=== PATIENT | female | born 1965 | race African-American/Black ===

== ENCOUNTER 2017-04-19 15:09 | Emergency (ER) | payer BC, OTHER ==
[~2017-04-19] VITALS: Ht 170.2 cm; Wt 100.0 kg
[2017-04-19] MEDS ORDERED: METF500T4 PO (15:20)
[2017-04-19] MEDS ORDERED: ONDANSETRON 4MG ODT PO ONE (16:00)
[2017-04-19 18:03] VITALS: BP 169/75
== END 2017-04-19 18:04 | disposition home or self-care (01) ==
LOC: ER 15:36
DX: T40.2X5A Adverse effect of other opioids, initial encounter (principal); Z88.6 Allergy status to analgesic agent; Z88.8 Allergy status to other drugs, medicaments and biological substances
CPT/HCPCS: 93005; 99283; Q0162; Z7610

== ENCOUNTER 2017-04-21 01:27 | Emergency (ER) | payer BC ==
[~2017-04-21] VITALS: Ht 162.6 cm; Wt 57.0 kg
[~2017-04-21 01:27] MED LIST: METF500T4 PO
[2017-04-21] MEDS ORDERED: ASPIRIN 81MG TABLET PO ONE (03:00)
[2017-04-21] MEDS ORDERED: NITROGLYCERIN OINT 1GM/INCH UDPKT TD ONE (03:00)
[2017-04-21 03:23] LABS: BASOPHILS % 0.8 % (0.0-2.0); EOSINOPHILS % 4.6 % (0.0-5.0); HEMATOCRIT. 35.8 % (36.0-48.0); HEMOGLOBIN. 12.1 g/dL (12.0-16.0); LYMPHOCYTES % 22.8 % (20.0-50.0); MEAN CORPUSCULAR HEMOGLOBIN 28.9 pg (28.0-32.0); MEAN CORPUSCULAR VOLUME 85.4 fL (81.0-99.0); MEAN PLATELET VOLUME 8.6 fl (7.4-10.4); MONOCYTES % 10.6 % (2.0-8.0); NEUTROPHILS % 61.2 % (40.0-76.0); PLATELET 288 x1000/uL (130-400); RED CELL DISTRIBUTION WIDTH 13.6 % (11.6-14.6)
[2017-04-21 03:34] LABS: D-DIMER < 0.19 mg/L FEU (<0.50); PROTHROMBIN TIME 10.1 sec
[2017-04-21 03:40] LABS: *AMPHETAMINES SCREEN URINE NEGATIVE (NEGATIVE); *BARBITURATES SCREEN URINE NEGATIVE (NEGATIVE); *BENZODIAZEPINES SCREEN URINE NEGATIVE (NEGATIVE); *COCAINE SCREEN URINE NEGATIVE (NEGATIVE); CANNABINOID URINE SCREEN PRESUMTIVE POSITIVE (NEGATIVE); METHADONE URINE SCREEN NEGATIVE (NEGATIVE); OPIATES URINE SCREEN NEGATIVE (NEGATIVE); PHENCYCLIDINE URINE SCREEN NEGATIVE (NEGATIVE)
[2017-04-21 03:40] LABS: CARBON DIOXIDE 28 mEq/L (21-32); CHLORIDE 102 mEq/L (98-107); ETHANOL BLOOD < 10 mg/dL; TROPONIN I < 0.02 ng/mL (0.00-0.04)
[2017-04-21 06:32] VITALS: BP 145/80
== END 2017-04-21 06:34 | disposition home or self-care (01) ==
LOC: ER 01:27
DX: I10 Essential (primary) hypertension (principal); R06.00 Dyspnea, unspecified; R00.1 Bradycardia, unspecified; M10.9 Gout, unspecified; E11.9 Type 2 diabetes mellitus without complications; F12.10 Cannabis abuse, uncomplicated; Z88.6 Allergy status to analgesic agent; Z87.828 Personal history of other (healed) physical injury and trauma
CPT/HCPCS: 36415; 71010; 80053; 80305; 83605; 83690; 83880; 84484; 85025; 85379; 85610; 93005; 99285; G0482; Z7610

== ENCOUNTER 2017-10-24 21:28 | Emergency (ER) | payer BC ==
[~2017-10-24] VITALS: Ht 170.2 cm; Wt 100.0 kg
[2017-10-25] MEDS ORDERED: CLONIDINE 0.1MG TABLET PO ONE (00:45)
[2017-10-25 02:30] VITALS: BP 143/63
[2017-10-25] MEDS ORDERED: TETANUS, DIPHTHERIA, PERTUSSIS VAC/PF 0.5ML (>7YR OLD) IM ONE (02:39)
[2017-10-25] MEDS ORDERED: BACITRACIN ZINC OINT UDPKT TOP ONE (02:45)
== END 2017-10-25 02:45 | disposition home or self-care (01) ==
LOC: ER 21:28
DX: S93.401A Sprain of unspecified ligament of right ankle, initial encounter (principal); S80.212A Abrasion, left knee, initial encounter; I10 Essential (primary) hypertension; E11.9 Type 2 diabetes mellitus without complications; F12.10 Cannabis abuse, uncomplicated; W01.0XXA Fall on same level from slipping, tripping and stumbling without subsequent striking against object, initial encounter; Y93.89 Activity, other specified; Y99.8 Other external cause status; Y92.89 Other specified places as the place of occurrence of the external cause
CPT/HCPCS: 73562; 73610; 90471; 90715; 99284; Z7610

== ENCOUNTER 2018-01-28 18:56 | Emergency (ER) | payer SELFPAY ==
[~2018-01-28] VITALS: Ht 170.2 cm; Wt 96.0 kg
[2018-01-28 19:53] VITALS: BP 179/67
[2018-01-28 22:36] LABS: CLARITY URINE CLEAR (CLEAR); COLOR URINE YELLOW (YELLOW); KETONES URINE NEGATIVE (NEGATIVE); LEUKOCYTE ESTERASE URINE 1+ (NEGATIVE); NITRITE URINE NEGATIVE (NEGATIVE); OCCULT BLOOD URINE NEGATIVE (NEGATIVE); PROTEIN URINE NEGATIVE (NEGATIVE); UROBILINOGEN URINE 0.2 E.U./dL (0.2-1.0)
[2018-01-28] MEDS ORDERED: BACITRACIN ZINC OINT UDPKT TOP ONE (22:45)
[2018-01-28] MEDS ORDERED: LIDOCAINE HCL 1% 20ML VIAL (Pyxis) INJ INFIL ONE (22:45)
[2018-01-28] MEDS ORDERED: LIDOCAINE HCL/PF 1% 10 MG/ML 5ML VIAL IJ NR (23:15)
[2018-01-28 23:26] LABS: BASOPHILS % 0.6 % (0.0-2.0); EOSINOPHILS % 4.7 % (0.0-5.0); HEMATOCRIT. 35.4 % (36.0-48.0); HEMOGLOBIN. 11.7 g/dL (12.0-16.0); LYMPHOCYTES % 27.8 % (20.0-50.0); MEAN CORPUSCULAR HEMOGLOBIN 28.5 pg (28.0-32.0); MEAN CORPUSCULAR VOLUME 85.8 fL (81.0-99.0); MEAN PLATELET VOLUME 9.3 fl (7.4-10.4); MONOCYTES % 8.4 % (2.0-8.0); NEUTROPHILS % 58.5 % (40.0-76.0); PLATELET 258 x1000/uL (130-400); RED BLOOD CELL COUNT 4.13 mill/uL (4.2-5.4)
[2018-01-28 23:29] LABS: CHLORIDE 106 mEq/L (98-107)
[2018-01-28 23:32] LABS: PROTHROMBIN TIME 10.8 sec (9.4-11.6)
== END 2018-01-29 03:37 | disposition home or self-care (01) ==
LOC: ER 20:52
DX: R06.02 Shortness of breath (principal); L02.213 Cutaneous abscess of chest wall; I10 Essential (primary) hypertension; E11.9 Type 2 diabetes mellitus without complications; F12.10 Cannabis abuse, uncomplicated
CPT/HCPCS: 10060; 36415; 71045; 80053; 81003; 83880; 84484; 85025; 85610; 93005; 99285; J3490

== ENCOUNTER 2023-11-26 20:49 | Emergency (ER) | payer MEDICAID ==
[~2023-11-26] VITALS: Ht 177.8 cm; Wt 81.0 kg
[~2023-11-26 20:49] MED LIST changes: +METF-414 PO; -METF500T4 PO
[2023-11-26 20:55] VITALS: BP 169/78; PULSE 75; RESP 16; O2SAT 100
[2023-11-26 23:35] VITALS: TEMP 97.3
[2023-11-26] MEDS: ACETAMINOPHEN 325MG TABLET PO ONE (23:35)
== END 2023-11-27 00:42 | disposition home or self-care (01) ==
LOC: ER 20:49
DX: M25.512 Pain in left shoulder (principal); F12.10 Cannabis abuse, uncomplicated; E11.9 Type 2 diabetes mellitus without complications; M54.2 Cervicalgia; I10 Essential (primary) hypertension; Z88.5 Allergy status to narcotic agent; W01.0XXA Fall on same level from slipping, tripping and stumbling without subsequent striking against object, initial encounter; Y93.89 Activity, other specified; Y92.89 Other specified places as the place of occurrence of the external cause; Y99.8 Other external cause status
CPT/HCPCS: 73030; 99284

== ENCOUNTER 2023-12-12 19:06 | Emergency (ER) | payer MEDICAID, OTHER ==
[~2023-12-12] VITALS: Ht 167.6 cm; Wt 81.0 kg
[2023-12-12 19:19] VITALS: BP 171/80; PULSE 74; RESP 18; TEMP 98.5; O2SAT 100
[2023-12-12] MEDS: KETOROLAC 30MG/ML VIAL IM STA (20:04)
[2023-12-12] MEDS: METOCLOPRAMIDE HCL 10MG/2ML VIAL IM ONE (20:15)
[2023-12-12] MEDS: CYCLOBENZAPRINE 10MG TABLET PO NR (21:15)
[2023-12-12 21:34] LABS: CLARITY URINE CLEAR (CLEAR); COLOR URINE YELLOW (YELLOW); GLUCOSE URINE NEGATIVE (NEGATIVE); KETONES URINE NEGATIVE (NEGATIVE); LEUKOCYTE ESTERASE URINE TRACE (NEGATIVE); NITRITE URINE NEGATIVE (NEGATIVE); OCCULT BLOOD URINE NEGATIVE (NEGATIVE); PH URINE 7.5 (4.5-8.0); PROTEIN URINE NEGATIVE (NEGATIVE); SPECIFIC GRAVITY URINE 1.023 (1.005-1.030)
[2023-12-12 22:00] LABS: RBC URINE 0-2 /hpf (0-2); SQUAMOUS EPITHELIAL CELL URINE RARE /lpf (RARE/1+)
[2023-12-12 22:01] LABS: BACTERIA URINE NONE SEEN
[2023-12-12] MEDS ORDERED: IMIT50 MT (22:07)
[2023-12-12] MEDS ORDERED: CYCL5TAB PO (22:07)
== END 2023-12-12 22:25 | disposition home or self-care (01) ==
LOC: ER 19:06
DX: G43.909 Migraine, unspecified, not intractable, without status migrainosus (principal); M62.838 Other muscle spasm; F12.10 Cannabis abuse, uncomplicated
CPT/HCPCS: 99284; 81003; 96372; J1885; J2765